=== PATIENT | female | born 1985 | race Caucasian/White ===

== ENCOUNTER 2018-01-22 18:55 | Emergency (ER) | payer OTHER ==
[~2018-01-22] VITALS: Ht 170.2 cm; Wt 117.9 kg
[~2018-01-22 18:55] MED LIST: AMITRIPTYLINE H50 MG PO; CALCI-CHEW500 MG PO; CLARITIN10 MG PO; FLINTSTONES CO1 EACH PO; NORCO 5-325 TA1 EACH PO; PRENACARE TABL1 EACH PO; TUMS200 MG PO
[2018-01-22] MEDS ORDERED: VITAMIN D5000 UNI1 PO (19:03)
[2018-01-22] MEDS ORDERED: PAXIL10 MG PO (19:04)
== END 2018-01-22 19:34 | disposition home or self-care (01) ==
LOC: ED 18:55
DX: S00.93XA Contusion of unspecified part of head, initial encounter (principal); W01.198A Fall on same level from slipping, tripping and stumbling with subsequent striking against other object, initial encounter; Z79.899 Other long term (current) drug therapy
CPT/HCPCS: 99282